=== PATIENT | female | born 1965 | race African-American/Black ===

== ENCOUNTER 2020-08-04 11:01 | Inpatient (IN) ==
[2020-08-04 12:12] LABS: Basophils # 0.1 10*3/uL (0.0-0.2); Basophils % 0.7 % (0.0-0.8); Eosinophils # 0.6 10*3/uL (0.0-0.87); Eosinophils % 8.2 % (0.00-10.9); Hematocrit 36.7 VOL% (35.7-47.0); Hemoglobin 11.7 GM/DL (12.0-16.0); Immature Granulocytes % 0.3 %; Immature Granulocytes Absolute 0.02 #; Lymphocytes # 1.7 10*3/uL (1.4-4.0); Lymphocytes % 23.8 % (21.3-54.2); Mean Corpuscular HGB Conc 31.9 GM/DL (32-36); Mean Corpuscular Volume 94.1 FL (87-102); Platelet Count 321 T/CUMM (130-400); Red Cell Distribution Width 14.5 % (9.3-17.3); White Blood Count 7.1 T/CUMM (4-12)
[2020-08-04 12:21] LABS: INR 1.1; PT Patient Result 11.4 SECS (9.8-11.9)
[2020-08-04 12:26] LABS: Albumin 3.5 G/DL (3.4-5.0); Bilirubin,Total 0.8 MG/DL (0.2-1.0); Calcium 8.7 MG/DL (8.5-10.1); Osmolality,Calculated 281.1 MOS/KG (273-304); Potassium 3.2 MMOL/L (3.5-5.1); Total Protein 7.5 G/DL (5.0-7.5)
[2020-08-04] MEDS ORDERED: ALBUTEROL/IPRATROPIUM 3 ML NEB RESP TX STA (13:18)
[2020-08-04] MEDS ORDERED: methylPREDNISolone SOD SUC 125 MG/2 ML VIAL IV STA (13:18)
[2020-08-04] MEDS ORDERED: ASPIRIN 325 MG TABLET PO STA (13:18)
[2020-08-04] MEDS ORDERED: ALBUTEROL 2.5 MG/3 ML NEB RESP TX STA (13:18)
[2020-08-04] MEDS ORDERED: AZITHROMYCIN INJ 500 MG in SODIUM CHLORIDE 0.9% 250 ML IV STA (13:20)
[2020-08-04] MEDS ORDERED: cefTRIAXone 1,000 MG in SODIUM CHLORIDE 0.9% 100 ML IV STA (13:20)
[2020-08-04] MEDS ORDERED: cefTRIAXone 1,000 MG in SYRINGE 1 EACH IV STA (13:23)
[2020-08-04] MEDS ORDERED: hydrALAZINE 20 MG/1 ML VIAL IV PRN (15:52)
[2020-08-04] MEDS ORDERED: ONDANSETRON 4 MG/2 ML VIAL IV PRN (15:52)
[2020-08-04] MEDS ORDERED: MORPHINE 4 MG/1 ML VIAL IV PRN (15:52)
[2020-08-04] MEDS ORDERED: GLUCAGON 1 MG VIAL IM PRN (15:52)
[2020-08-04] MEDS ORDERED: DEXTROSE 50% 25 GM/50 ML VIAL IV PRN (15:52)
[2020-08-04] MEDS ORDERED: guaiFENesin 200 MG/10 ML UDCUP PO PRN (15:57)
[2020-08-04] MEDS: SODIUM CHLORIDE 0.45% 1,000 ML IV SCH (17:25)
[2020-08-04] MEDS: PANTOPRAZOLE 40 MG TABLET PO SCH (17:28)
[2020-08-04] MEDS: LISINOPRIL/HCTZ 20-12.5 MG TABLET PO SCH (17:28)
[2020-08-04 17:35] LABS: Ferritin 24.3 ng/ml (8-252)
[2020-08-04 17:41] LABS: Thyroid Stimulating Hormone 1.14 uIU/ml (0.358-3.74)
[2020-08-04 18:10] LABS: Folate 22.6 NG/ML (5.38-24.0)
[2020-08-04 18:34] LABS: Cancer Antigen 19-9 1.69 U/ML (0-35)
[2020-08-04 18:40] LABS: Carcinoembryonic Antigen < 0.50 NG/ML (0.0-5.0)
[2020-08-04] MEDS: ALBUTEROL 2.5 MG/3 ML NEB RESP TX SCH (19:58)
[2020-08-04] MEDS ORDERED: ENOXAPARIN 40 MG/0.4 ML SYRINGE SUBCUT SCH (21:00)
[2020-08-04] MEDS: BUDESONIDE/FORMOTEROL 160-4.5 INHALER 6 GM INH SCH (21:28)
[2020-08-04] MEDS: methylPREDNISolone SOD SUC 40 MG/1 ML VIAL IV SCH (21:28)
[2020-08-05] MEDS: ALBUTEROL 2.5 MG/3 ML NEB RESP TX SCH ×3 (00:22→13:12)
[2020-08-05 05:59] LABS: Basophils % 0.1 % (0.0-0.8); Hematocrit 37.5 VOL% (35.7-47.0); Hemoglobin 12.4 GM/DL (12.0-16.0); Immature Granulocytes % 1.2 %; Immature Granulocytes Absolute 0.12 #; Lymphocytes # 1.1 10*3/uL (1.4-4.0); Lymphocytes % 10.5 % (21.3-54.2); Mean Corpuscular HGB Conc 33.1 GM/DL (32-36); Mean Corpuscular Volume 93.1 FL (87-102); Monocytes % 2.4 % (1.7-12.7); Neutrophils % 85.8 % (38.7-73.9); Platelet Count 325 T/CUMM (130-400); Red Blood Count 4.03 MC/CUMM (3.8-5.5); Red Cell Distribution Width 14.5 % (9.3-17.3); White Blood Count 10.2 T/CUMM (4-12)
[2020-08-05] MEDS: methylPREDNISolone SOD SUC 40 MG/1 ML VIAL IV SCH (06:04)
[2020-08-05 06:27] LABS: Albumin 3.5 G/DL (3.4-5.0); Bilirubin,Total 0.6 MG/DL (0.2-1.0); Calcium 9.3 MG/DL (8.5-10.1); Osmolality,Calculated 276.5 MOS/KG (273-304); Potassium 3.1 MMOL/L (3.5-5.1); Risk Ratio 2.91; Total Protein 8.1 G/DL (5.0-7.5); VLDL CHOLESTEROL 10.2 MG/DL
[2020-08-05] MEDS: SODIUM CHLORIDE 0.45% 1,000 ML IV SCH (08:00)
[2020-08-05] MEDS: BUDESONIDE/FORMOTEROL 160-4.5 INHALER 6 GM INH SCH (08:44)
[2020-08-05] MEDS: LISINOPRIL/HCTZ 20-12.5 MG TABLET PO SCH (08:44)
[2020-08-05] MEDS: PANTOPRAZOLE 40 MG TABLET PO SCH (08:44)
[2020-08-05] MEDS ORDERED: cefTRIAXone 1,000 MG in SYRINGE 1 EACH IV SCH (09:00)
[2020-08-05] MEDS ORDERED: CETIRIZINE 10 MG TABLET PO SCH (09:00)
[2020-08-05] MEDS ORDERED: AZITHROMYCIN INJ 500 MG in SODIUM CHLORIDE 0.9% 250 ML IV SCH (09:00)
[2020-08-05] MEDS ORDERED: POTASSIUM CHLORIDE 20 MEQ TABLET PO PRN (09:46)
[2020-08-05 13:01] VITALS: BP 137/82
== END 2020-08-05 15:01 | disposition home or self-care (01) | DRG 203 ==
LOC: N.ED 11:01 → SUATTDRO 15:50 → N.EDINP 15:50 → INTOOBSV 15:50 → N.TELEN 16:29
PROVIDERS: ADMIT Internal Medicine; ATTEND Internal Medicine

== ENCOUNTER 2020-09-06 05:59 | Inpatient (IN) ==
[2020-09-05 11:45] LABS: Basophils % 0.6 % (0.0-0.8); Eosinophils # 0.2 10*3/uL (0.0-0.87); Eosinophils % 3.7 % (0.00-10.9); Hematocrit 35.9 VOL% (35.7-47.0); Hemoglobin 11.7 GM/DL (12.0-16.0); Immature Granulocytes % 0.2 %; Immature Granulocytes Absolute 0.01 #; Lymphocytes # 2.1 10*3/uL (1.4-4.0); Lymphocytes % 39.8 % (21.3-54.2); Mean Corpuscular HGB Conc 32.6 GM/DL (32-36); Mean Corpuscular Volume 93.2 FL (87-102); Mean Platelet Volume 10.2 FL (9.6-12.0); Monocytes % 7.7 % (1.7-12.7); Platelet Count 317 T/CUMM (130-400); Red Blood Count 3.85 MC/CUMM (3.8-5.5); Red Cell Distribution Width 14.2 % (9.3-17.3); White Blood Count 5.2 T/CUMM (4-12)
[2020-09-05 12:10] LABS: Calcium 8.8 MG/DL (8.5-10.1); Osmolality,Calculated 281.1 MOS/KG (273-304); Potassium 3.9 MMOL/L (3.5-5.1)
[2020-09-06] MEDS ORDERED: DIAZEPAM 5 MG TABLET PO ONE (06:40)
[2020-09-06] MEDS ORDERED: GABAPENTIN 400 MG CAPSULE PO ONE (06:40)
[2020-09-06] MEDS ORDERED: ALBUTEROL 2.5 MG/3 ML NEB RESP TX ONE (06:40)
[2020-09-06] MEDS ORDERED: ACETAMINOPHEN 500 MG TABLET PO ONE (06:40)
[2020-09-06] MEDS ORDERED: LACTATED RINGERS 1,000 ML IV SCH (08:00)
[2020-09-06] MEDS ORDERED: MIDAZOLAM 2 MG/2 ML VIAL ONE (08:22)
[2020-09-06] MEDS ORDERED: fentaNYL 100 MCG/2 ML VIAL ONE (08:22)
[2020-09-06] MEDS ORDERED: SUFentanil 50 MCG/ML AMP ONE (08:27)
[2020-09-06] MEDS ORDERED: LIDOCAINE 1%/EPI INJ 20 ML VIAL ONE (08:27)
[2020-09-06] MEDS ORDERED: BUPIVACAINE MPF 0.25% 30 ML VIAL ONE (08:27)
[2020-09-06] MEDS ORDERED: SEVOFLURANE 1 UNIT/15 MINUTE INH ONE ×10 (09:09→10:43)
[2020-09-06] MEDS ORDERED: ROCURONIUM 50 MG/5 ML VIAL IV ONE (09:09)
[2020-09-06] MEDS ORDERED: DEXAMETHASONE 4 MG/1 ML VIAL ONE (09:09)
[2020-09-06] MEDS ORDERED: ONDANSETRON 4 MG/2 ML VIAL ONE (09:09)
[2020-09-06] MEDS ORDERED: propofoL 200 MG/20 ML VIAL IV ONE (09:09)
[2020-09-06] MEDS ORDERED: SUCCINYLCHOLINE 200 MG/10 ML VIAL ONE (09:09)
[2020-09-06] MEDS ORDERED: LIDOCAINE 2% 5 ML VIAL ONE (09:09)
[2020-09-06] MEDS ORDERED: PHENYLEPHRINE 1 MG/10 ML SYRINGE IV ONE (09:11)
[2020-09-06] MEDS ORDERED: LACTATED RINGERS 1,000 ML IV ONE (09:28)
[2020-09-06] MEDS ORDERED: GLYCOPYRROLATE 0.4 MG/2 ML VIAL ONE (10:38)
[2020-09-06] MEDS ORDERED: NEOSTIGMINE 10 MG/10 ML VIAL ONE (10:38)
[2020-09-06] MEDS ORDERED: TISSUE ADHESIVE 1 EACH APPLICATOR TOP ONE (10:51)
[2020-09-06] MEDS ORDERED: HYDROmorphone 2 MG/1 ML VIAL IV PRN ×2 (11:39→12:48)
[2020-09-06] MEDS ORDERED: ONDANSETRON 4 MG/2 ML VIAL IV PRN ×2 (11:39→12:48)
[2020-09-06] MEDS ORDERED: PROMETHAZINE INJ 25 MG in SODIUM CHLORIDE 0.9% 50 ML IV PRN (12:06)
[2020-09-06] MEDS ORDERED: PROMETHAZINE 25 MG/1 ML VIAL ONE (12:07)
[2020-09-06] MEDS ORDERED: PROMETHAZINE 25 MG/1 ML VIAL IM PRN (12:48)
[2020-09-06 13:13] LABS: Basophils % 0.3 % (0.0-0.8); Eosinophils % 0.1 % (0.00-10.9); Hematocrit 35.2 VOL% (35.7-47.0); Hemoglobin 11.3 GM/DL (12.0-16.0); Immature Granulocytes % 1.2 %; Immature Granulocytes Absolute 0.14 #; Lymphocytes # 1.3 10*3/uL (1.4-4.0); Lymphocytes % 11.6 % (21.3-54.2); Mean Corpuscular HGB Conc 32.1 GM/DL (32-36); Mean Corpuscular Volume 96.7 FL (87-102); Mean Platelet Volume 10.4 FL (9.6-12.0); Monocytes % 3.3 % (1.7-12.7); Neutrophils % 83.5 % (38.7-73.9); Platelet Count 302 T/CUMM (130-400); Red Blood Count 3.64 MC/CUMM (3.8-5.5); Red Cell Distribution Width 14.4 % (9.3-17.3); White Blood Count 11.4 T/CUMM (4-12)
[2020-09-06] MEDS: LACTATED RINGERS 1,000 ML IV SCH ×2 (13:15→21:04)
[2020-09-06] MEDS: PANTOPRAZOLE 40 MG TABLET PO SCH (13:15)
[2020-09-06 13:30] LABS: Calcium 8.4 MG/DL (8.5-10.1); Osmolality,Calculated 285.1 MOS/KG (273-304); Potassium 3.4 MMOL/L (3.5-5.1)
[2020-09-07] MEDS ORDERED: ENOXAPARIN 40 MG/0.4 ML SYRINGE SUBCUT SCH (05:00)
[2020-09-07] MEDS: LACTATED RINGERS 1,000 ML IV SCH (05:12)
[2020-09-07 05:28] LABS: Basophils % 0.2 % (0.0-0.8); Hematocrit 33.1 VOL% (35.7-47.0); Hemoglobin 10.7 GM/DL (12.0-16.0); Immature Granulocytes % 0.5 %; Immature Granulocytes Absolute 0.04 #; Lymphocytes # 1.7 10*3/uL (1.4-4.0); Mean Corpuscular HGB Conc 32.3 GM/DL (32-36); Mean Corpuscular Volume 94.8 FL (87-102); Mean Platelet Volume 10.5 FL (9.6-12.0); Monocytes % 7.2 % (1.7-12.7); Neutrophils % 73.1 % (38.7-73.9); Platelet Count 308 T/CUMM (130-400); Red Blood Count 3.49 MC/CUMM (3.8-5.5); Red Cell Distribution Width 14.5 % (9.3-17.3); White Blood Count 8.8 T/CUMM (4-12)
[2020-09-07 05:30] LABS: Calcium 8.1 MG/DL (8.5-10.1); Osmolality,Calculated 280.1 MOS/KG (273-304); Potassium 3.7 MMOL/L (3.5-5.1)
[2020-09-07] MEDS: PANTOPRAZOLE 40 MG TABLET PO SCH (08:46)
[2020-09-07 11:20] VITALS: BP 148/69
== END 2020-09-07 13:10 | disposition home or self-care (01) | DRG 989 ==
LOC: N.OR 05:59 → N.SDSINP 06:02 → N.3E 12:46
PROVIDERS: ADMIT Surgery; ATTEND Surgery